=== PATIENT | male | born 1990 | race Caucasian/White ===

== ENCOUNTER → 2022-05-04 14:25 | Outpatient (BNVA) | payer SELFPAY | PROVIDERS: Visit Provider Orthopaedic Surgery | DX: M25.561 Pain in right knee (principal) | CPT/HCPCS: 73560; 73565 ==

== ENCOUNTER 2022-09-13 09:26 | Emergency (ER) | payer BC, MEDICAID, SELFPAY ==
[2022-09-13 09:35] VITALS: BP 168/118; PULSE 111; RESP 18; O2SAT 96; BMI 26.1
--- NOTE | 2022-09-13 09:46 | XR_ITS ---
WS: [id number] Left ankle, 3 views, 09/13/2022 Clinical Data: pain/swelling Comparison: None. Findings: No fractures or dislocations are seen. The ankle mortise is normal. The talus and calcaneus are unrem arkable. There is soft tissue swelling over the lateral malleolus. There is osteoarthritis of the jonny onavicular articulation. XR/XR ankle LT min 3V* [id number] Impression: 1. Soft tissue swelling over lateral malleolus. 2. 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
--- NOTE | 2022-09-13 09:46 | W.ED.EXTPRO ---
HPI - Extremity Problem General: Chief complaint: Extremity Injury, Lower Stated complaint: left ankle pain Time Seen by Provider: 09/13/22 09:26 Source: patient Mode of arrival: ambulatory (with crutches) Limitations: no limitations History of Present Illness: Patient is a 32-year-old male who presents to ED today for evaluation of left ankle pain and swelling. Patient states he initially injured the ankle back in April and states he was seen at [facility] and was told that he just rolled it . Patient states since then he has had pain and swelling in the ankle states he woke up this morning and could barely walk on it. No recent injury or trauma. He has no other complaints at this time. MD Complaint: joint swelling and joint pain Onset (ago): hour(s) Pain Consistency: constant Location: left and lower extremity (ankle) Radiation: none Relieving factors: immobilization Exacerbating factors: range of motion, weight bearing and walking Associated symptoms: Reports no associated symptoms; Deny fever(s) or rash Review of Systems Const: Denies: fever(s), chills, body aches, fatigue or malaise Musc: Reports: joint pain (L ankle) and joint swelling (L ankle); Denies: neck pain, back pain, extremity pain, extremity swelling, joint redness or joint warmth Skin/Breast: Denies: rash Neuro: Denies: headache(s), numbness in extremities, weakness in extremities or sensory changes Physical Exam Const: COMMON NORMALS: no acute distress, average body habitus, patient oriented x3, no limitations, healthy appearing, alert and well nourished Extremity: COMMON NORMALS: capillary refill normal, no clubbing, cyanosis or edema and no calf tenderness GENERAL: Yes normal exam except as noted LEFT LOWER EXTREMITY: Yes ankle joint (swelling/tenderness and mild ecchymosis to lateral L ankle) Left ankle: Yes neurovascular exam (normal) Neuro: COMMON NORMALS: patient oriented x3, moves all extremities, no focal motor deficits and no sensory deficits noted SENSORIUM/ORIENTATION: Yes alert Course Vital Signs: Vital signs: Vital Signs Temperature 98.7 F 09/13/22 09:52 Pulse Rate 102 H 09/13/22 09:52 Respiratory Rate 20 H 09/13/22 09:52 Blood Pressure 168/118 09/13/22 09:52 Pulse Oximetry 98 09/13/22 09:52 Oxygen Delivery Me thod 09/13/22 09:52 MDM - Extremity (Nontraumatic) Medical Decision Making XR negative. Patient is status post injury 4 mo ago and continues to have pain-worse today. He does have swelling around the lateral aspect of ankle. Patient states he is active with work and on his feet often and pain interferes with this. I think getting him evaluated by podiatry would be in his best interest. Referral placed with CM. He has MACKENZIE wrap, ankle brace, and crutches to use in the meantime. Discharge Plan Discharge Patient Disposition: Home Clinical Impression: Ankle pain, left Qualifiers: Chronicity: chronic Qualified Code(s): M25.572 - Pain in left ankle and joints of left foot Condition: Stable Prescriptions: No Action No Known Home Medications Discharge Orders: Discharge ED (Routine); Ordered 09/13/22 Ordered By: Mona Israel Coding Level of Care Code ED Cultural Centre Manager for Drew Segura
[2022-09-13 09:52] VITALS: BP 168/118; PULSE 102; RESP 20; TEMP 37.1; O2SAT 98
--- NOTE | 2022-09-13 10:56 | DCPLANNER ---
Addendum entered by Sheyla Modi 09/15/22 08:44: Patient had a follow up appointment with podiatry - patient did attend appointment Addendum entered by Sheyla Modi 09/14/22 08:01: Patient has a follow up appointment scheduled for Wednesday, September 14, 2022 at 2:[address] Lemus at podiatry. Clinic will call patient with appointment information. Original Note: environmental compliance manager had message to schedule a follow up appointment for patient with ortho. environmental compliance manager sent patients information to the front office staff at ortho. Patients information will be printed and reviewed. Clinic will call patient with appointment information.
[2022-09-13 11:13] VITALS: BP 148/119; PULSE 95; RESP 18; O2SAT 100
--- NOTE | 2022-09-16 13:25 | DCPLANNER ---
production team manager called patient due to no primary care physician - spoke with patients , she stated that if the patient would like help in getting established with a provider, she would have patient call mental health case manager.
== END 2022-09-13 11:23 | disposition home or self-care (01) ==
PROVIDERS: Emergency Provider Physician Assistant
DX: M25.572 Pain in left ankle and joints of left foot (principal)
CPT/HCPCS: 73610; 99283

== ENCOUNTER → 2022-09-14 14:45 | Outpatient (BNVA) | payer BC, MEDICAID, SELFPAY | PROVIDERS: Referring Provider Physician Assistant; Visit Provider Podiatrist Foot & Ankle Surgery | DX: S93.402A Sprain of unspecified ligament of left ankle, initial encounter (principal); X58.XXXA Exposure to other specified factors, initial encounter; M87.872 Other osteonecrosis, left ankle | CPT/HCPCS: 73630 ==

== ENCOUNTER 2023-02-11 09:18 | Outpatient (CLI) | payer BC, MEDICAID, SELFPAY ==
--- NOTE | 2023-02-11 09:30 | MR_ITS ---
WS: [id number] EXAMINATION: MR ankle LT wo con* [id number] ORDER DATE: 02/11/2023 9:29 AM COMPARISON: None. HISTORY: pain CONTRAST: None. TECHNIQUE: Axial proton density fat sat, axial T1, sagittal proton density, sagittal STIR, coronal T2 fat sat, and coronal T1 sequences performed. After contrast, axial T1 fat sat, coronal T1 fat sat, and sagittal T1 fat sat were performed. FINDINGS: Marked degenerative changes in the midfoot advanced for a patient this age likely due to prior trauma . Hypertrophic changes at the talonavicular joint with hypertrophic spurring dorsally. Flattening of the talus with flattening of the talocalcaneal angle. Osteochondral defect involving the talar dome l aterally with associated edema measuring 6 mm. Subchondral cystic change involving the talus with ass ociated edema. Small joint effusion. Soft tissue edema about the ankle. Distal Achilles is normal in appearance. Normal peroneal tendon sheath. Thinning with suspected prior partial tear involving the peroneal brevis with intact fibers visualized distally. Diminutive perone al brevis. Mild degenerative changes involving the cuboid and cuneiforms. Flexor compartment tendons appear intact. Extensor compartment tendons appear intact. Normal plantar aponeurosis. ATF appears in tact. IMPRESSION: * Abnormal flattening of the talus with loss of the normal talocalcaneal angle. Advanced hypertrophi c changes at the talonavicular articulation with subchondral edema and cystic changes likely due to p rior trauma. * Diminutive peroneal brevis likely due to partial chronic high-grade tear. Peroneal longus appears intact. * Small joint effusion. * Soft tissue edema about the ankle. * 6 mm osteochondral defect involving the talar dome laterally with associated edema
== END 2023-02-11 09:19 | disposition home or self-care (01) ==
PROVIDERS: PCP Nurse Practitioner; Visit Provider Podiatrist Foot & Ankle Surgery
DX: M25.572 Pain in left ankle and joints of left foot (principal); M25.579 Pain in unspecified ankle and joints of unspecified foot; S93.409A Sprain of unspecified ligament of unspecified ankle, initial encounter; X58.XXXA Exposure to other specified factors, initial encounter
CPT/HCPCS: 73721

== ENCOUNTER 2023-05-06 10:21 | Day surgery (SDC) | payer BC, MEDICAID, SELFPAY ==
[2023-05-06] VITALS (8 sets, daily range): BP systolic 129–149; BP diastolic 77–102; PULSE 70–100; RESP 17–18; TEMP 36.3–36.7; O2SAT 99–100; BMI 23.6
[2023-05-06] MEDS: sodium chloride 0.9% 1,000 ML 30 ML IV (10:55)
--- NOTE | 2023-05-06 11:24 | P.HPUD_ITS ---
Surgery/Procedure H&P Update DATE OF PROCEDURE: May 06, 2023 DATE H&P PERFORMED: 05/02/23 H&P UPDATE INFORMATION: I have reviewed H&P completed within last 30 days, I have examined patient prior to procedure, No changes to prior documentation and H&P is in [facility] EMR on date indicated PREOP DIAGNOSIS: Left talus osteochondral defect PLANNED PROCEDURE: Operation Date: 05/06/23 11:55 Proposed Procedures p Left ankle arthroscopy with excision of osteochondral defect 95394,M25.572,G89.29,M95.8(Left) - Eleno Lemus DPM
--- NOTE | 2023-05-06 11:24 | ANES.PREANE2 ---
Pre-Anesthetic Assessment Height/Weight: Height 1.7 m Weight 68.492 kg Temp Pulse Resp BP Pulse Ox O2 Del Method 98.0 F 70 17 148/93 100 Room Air 05/06/23 10:43 05/06/23 10:43 05/06/23 10:43 05/06/23 10:43 05/06/23 10:43 05/06/23 10:44 Preop Diagnosis: Left talus osteochondral defect Operation Date: 05/06/23 11:55 Proposed Procedures p Left ankle arthroscopy with excision of osteochondral defect 46902,M25.572,G89.29,M95.8(Left) - Eleno Lemus DPM Familial anesthetic complications: none Was Beta Gato taken within 24 hours: N/A Was Clonidine taken within 24 hours: N/A Last intake: Intake Last Liquid Date 05/05/23 Last Liquid Time 22:00 Last Solid Date 05/05/23 Last Solid Time 19:00 Last Intake: 22:00 Social Alcohol () and No tobacco Exam alert, oriented x 3, clear to auscultation bilaterally and regular rate & rhythm Airway Submandibular: within normal limits Cervical ROM: within normal limits Mallampati: Class I Dentition: full (decayed front upper) Pulmonary None reported CV/HEM Hypertension None reported Hepatic None reported GI None reported Metabolic None reported Musc/skel Osteoarthritis/DJD Neuropsych None reported Anesthetic Plan ASA status: 1 Anesthesia: General and Regional (specify below) (pop block) Risk of > 500 ml blood loss (7ml/kg in children): No Medications/Allergies Home Medications Medication Instructions Recorded Confirmed Last Taken Type albuterol sulfate 90 mcg/actuation 2 puff inhalation Q6H PRN 10/12/22 05/05/23 Unknown Rx aerosol inhaler (Ventolin HFA) shortness of breath or wheezing #8.5 grams lisinopril 30 mg tablet 30 mg PO DAILY #90 tabs 11/03/22 05/05/23 05/05/23 Rx meloxicam 15 mg tablet 15 mg PO DAILY #30 tabs 01/12/23 05/05/23 05/05/23 Rx Allergies Allergy/AdvReac Type Severity Reaction Status Date / Time No Known Allergies Allergy Verified 05/06/23 10:38 Current Medications Generic Name Dose Route Start Last Admin Trade Name Freq PRN Reason Stop Dose Admin Sodium Chloride 1,000 mls @ 30 mls/hr 05/06/23 10:45 05/06/23 10:55 Sodium Chloride 0.9% IV 05/07/23 10:44 30 mls/hr .Q24H BARRON Administration Data Anesthesia Cardiac Studies: No Data to Display
--- NOTE | 2023-05-06 11:24 | ANES.PREANE2 ---
Pre-Anesthetic Assessment Height/Weight: Height 1.7 m Weight 68.492 kg Temp Pulse Resp BP Pulse Ox O2 Del Method 98.0 F 70 17 148/93 100 Room Air 05/06/23 10:43 05/06/23 10:43 05/06/23 10:43 05/06/23 10:43 05/06/23 10:43 05/06/23 10:44 Preop Diagnosis: Left talus osteochondral defect Operation Date: 05/06/23 11:55 Proposed Procedures p Left ankle arthroscopy with excision of osteochondral defect 48117,M25.572,G89.29,M95.8(Left) - Eleno Lemus DPM Familial anesthetic complications: none Was Beta Gato taken within 24 hours: N/A Was Clonidine taken within 24 hours: N/A Last intake: Intake Last Liquid Date 05/05/23 Last Liquid Time 22:00 Last Solid Date 05/05/23 Last Solid Time 19:00 Social Tobacco and No alcohol Exam alert, oriented x 3, clear to auscultation bilaterally and regular rate & rhythm Airway Submandibular: within normal limits Cervical ROM: within normal limits Mallampati: Class II Dentition: chipped (multiple caries) CV/HEM Hypertension Musc/skel Osteoarthritis/DJD Anesthetic Plan ASA status: 2 Anesthesia: General and Regional (specify below) (Pop blk) Medications/Allergies Home Medications Medication Instructions Recorded Confirmed Last Taken Type albuterol sulfate 90 mcg/actuation 2 puff inhalation Q6H PRN 10/12/22 05/05/23 Unknown Rx aerosol inhaler (Ventolin HFA) shortness of breath or wheezing #8.5 grams lisinopril 30 mg tablet 30 mg PO DAILY #90 tabs 11/03/22 05/05/23 05/05/23 Rx meloxicam 15 mg tablet 15 mg PO DAILY #30 tabs 01/12/23 05/05/23 05/05/23 Rx Allergies Allergy/AdvReac Type Severity Reaction Status Date / Time No Known Allergies Allergy Verified 05/06/23 10:38 Current Medications Generic Name Dose Route Start Last Admin Trade Name Freq PRN Reason Stop Dose Admin Sodium Chloride 1,000 mls @ 30 mls/hr 05/06/23 10:45 05/06/23 10:55 Sodium Chloride 0.9% IV 05/07/23 10:44 30 mls/hr .Q24H BARRON Administration Data Anesthesia Cardiac Studies: No Data to Display
[2023-05-06] MEDS: ceFAZolin 2,000 MG in sodium chloride 0.9% (plus) 50 ML 100 MG IV (11:51)
[2023-05-06] MEDS: lidocaine-epi 2% 20 mL INJ 12 ML INJECTION (12:10)
--- NOTE | 2023-05-06 12:43 | P.OP_ITS ---
Operative Report Date of procedure: May 06, 2023 Pre-op diagnosis: Left ankle pain Osteochondral defect left talus Post-op diagnosis: Same Post-op findings: osteochondral defect left talus Procedure done: ?Left ankle arthroscopy with excision of osteochondral defect. CPT code 99696 Implants: 4-0 nylon Surgeon: Eleno Lemus DPM Bill Recapitulation Clerk: Benjamin ALVARADO Estimated blood loss: 5 24 IV fluids: 0 Urine output: 0 Findings: Osteochondral defect left lower dome Brief History: Patient has failed conservative treatment consisting of anti-inflammatories, bracing, home physical therapy MRI of the left ankle is complementary of patient's clinical and subjective findings, there is an OCD at the talar dome, less than 1 cm.? Patient would like to proceed with ankle arthroscopy with OCD repair.? I reviewed at length with the patient, the risks, potential complications, benefits, alternatives, expectations, and typical outcomes associated with the surgery. The risks and potential complications were explained in detail, including but not limited to infection, wound dehiscence or soft tissue complications, bleeding and hematoma, chronic edema, neuritis or nerve damage producing numbness or chronic pain, CRPS, failure to relieve pain or worsening pain, thick / painful / unsightly scar, limited motion / stiffness, malposition, delayed union, malunion, or nonunion, fracture, reaction to implants, anesthetic complications, venous thromboembolism, and deformity recurrence.? Risk for superficial peroneal nerve neuritis and risk for fistula formation.? I discussed the notion of no regrets with the patient as it pertains to complications and outcomes. The patient seemed to understand the nature of the proposed care and required convalescence. They asked appropriate questions, answered to their satisfaction. They are aware no guarantees can be made as to a satisfactory outcome and they understand there may be other possible unforeseen complications or outcomes not listed here that will be treated accordingly if they arise. There were no written or implied guarantees given to the patient. They gave informed consent to proceed. Procedure: After obtaining informed consent, the patient was brought to the operating room and placed in the supine position. Following the administration of general anesthetic, a well-padded tourniquet was applied to the left thigh and inflated. The left ankle and lower leg were then prepped and draped in a sterile fashion. Standard anteromedial and anterolateral portals were established for the arthroscopy. A diagnostic arthroscopy was first performed to thoroughly inspect the left ankle joint. Significant hemorrhagic synovitis was noted, particularly surrounding the lateral talar dome. The cartilage in the remainder of the joint appeared intact and healthy. The arthroscopic shaver and other debridement tools were then introduced to perform extensive debridement of the hemorrhagic synovitis. Care was taken to remove all inflamed and hypertrophic synovial tissue while preserving the healthy surrounding structures. Continuous irrigation and suction were used to maintain a clear view and remove debris. Attention was then directed to the osteochondral defect on the lateral talar dome. The defect measured approximately 6 mm. The area was carefully debrided to remove any loose or unstable cartilage fragments. The subchondral bone plate was then microfractured using a small awl. Multiple holes were made in the s ubchondral bone to stimulate bleeding and encourage the formation of a fibrocartilage clot. Throughout the procedure, fluoroscopic guidance was used to confirm the correct location and depth of the microfractures. The joint was then thoroughly irrigated to remove any loose bone or cartilage fragments. Following the completion of the procedure, the portals were closed with nylon sutures, and a sterile dressing was applied. The patient was placed in a postoperative boot for immobilization and protection of the ankle. Tourniquet was deflated and a prompt hyperemic response was appreciated to the left foot and toes. Patient tolerated the procedure and anesthesia well and was transferred to the PACU with vital signs stable and vascular status intact. Following a period of postoperative monitoring he will be discharged home without home care instructions, scheduled follow-up and my cell phone number to contact me with any postoperative questions or concerns.
--- NOTE | 2023-05-06 12:43 | P.BOP_ITS ---
Date of Procedure: 05/06/23 Surgeon: Eleno Lemus DPM Hat Forming Machine Operator(s): Benjamin ALVARADO Procedure(s) performed: Left ankle scope Findings of the procedure(s): Osteochondral defect left talus Estimated blood loss: 5 Specimen(s) removed: none Post-operative diagnosis: Osteochondral defect left talus
--- NOTE | 2023-05-06 12:48 | ANES.PROC ---
Anesthesia Procedures Procedure/Date: 05/06/23 Nerve Block ^: Nerve Block 1: Main Anesthesia: general anesthesia Time Out Performed: Yes Consent: requested by attending/covering physician, from patient, risks and benefits reviewed and patient agrees to proceed Nerve block location: popliteal (left) Anesthesia monitors applied: pulse oximetry, EKG, BP cuff and oxygen Nerve block position: supine Anesthetic Used: ropivicaine 0.5% Amount of anesthesia used (mL): 30 Ultrasound used to: recognize landmarks Nerve Stimulator Used?: No Interscalene/Femoral BLK: 4 stimuplex 21 g needle used for position and inplane approach Injection: neg aspiration of heme Patient Tolerated Procedure: well Complications: none
--- NOTE | 2023-05-06 16:39 | ANE.PACU2 ---
Inpatient post-anesthesia follow up: Airway intact: Yes Vital signs: Temperature 98.1 F Pulse Rate 88 Respiratory Rate 18 Blood Pressure 145/102 Pulse Oximetry 99 Oxygen Delivery Me thod Room Air Oxygen Flow Rate Fraction of Inspir ed Oxygen Hydration adequate: Yes Nausea and vomiting: No Pain level: 2 Mental status: Baseline
== END 2023-05-06 13:36 | disposition home or self-care (01) ==
PROVIDERS: PCP Nurse Practitioner Family; Visit Provider Podiatrist Foot & Ankle Surgery
PROC: (CPT 29891; principal; 2023-05-06 11:45)
DX: M93.272 Osteochondritis dissecans, left ankle and joints of left foot (principal); I10 Essential (primary) hypertension
CPT/HCPCS: 29891; J0690; J1100; J2405; J2704; J2795; J3010; J7030

== ENCOUNTER → 2023-07-14 11:56 | Outpatient (BNVA) | payer BC, MEDICAID, SELFPAY | PROVIDERS: PCP Nurse Practitioner Family; Visit Provider Nurse Practitioner Family | DX: M10.9 Gout, unspecified (principal); M79.643 Pain in unspecified hand; I10 Essential (primary) hypertension; Z79.899 Other long term (current) drug therapy; Z13.6 Encounter for screening for cardiovascular disorders; T63.301A Toxic effect of unspecified spider venom, accidental (unintentional), initial encounter | CPT/HCPCS: 73130; 80053; 80061; 81003; 83036; 84443; 84550; 85025; 85651; 86140 ==

== ENCOUNTER → 2023-07-19 16:25 | Outpatient (BNVA) | payer BC, MEDICAID, SELFPAY | PROVIDERS: PCP Nurse Practitioner Family; Visit Provider Nurse Practitioner Family | DX: R79.89 Other specified abnormal findings of blood chemistry (principal) | CPT/HCPCS: 80053; 81003; 82570; 84156 ==

== ENCOUNTER 2023-07-27 09:24 | Outpatient (CLI) | payer BC, MEDICAID, SELFPAY ==
--- NOTE | 2023-07-27 10:00 | US_ITS ---
WS: [id number] RENAL ULTRASOUND HISTORY: R79.89 - Other specified abnormal findings of blood chemi... COMPARISON: None available. TECHNIQUE: 2-D and color Doppler imaging of the kidney submitted. Right kidney: 9.6 cm x 3.2 cm x 4.2 cm. Cortex: 0.6 cm Normal size kidney. Moderate thinning of the mid to distal renal cortex. No mass or obstruction. Left kidney: 8.1 cm x 5.7 cm x 3.5 cm. Cortex: 1.3 cm LEFT kidney is poorly visualized. Would be difficult to exclude mass or mild hydronephrosis. Aorta: Normal. Urinary Bladder: Minimally distended. Prostate gland is very slightly prominent measuring 3.3 x 4.0 x 2.4 cm. IMPRESSION: 1. Moderate thinning mid to distal RIGHT renal cortex. No obstruction. 2. Limited visualization of the LEFT kidney. No obvious abnormality.
== END 2023-07-27 09:25 | disposition home or self-care (01) ==
LOC: RAD 09:25
PROVIDERS: PCP Nurse Practitioner Family; Visit Provider Nurse Practitioner Family
DX: R79.89 Other specified abnormal findings of blood chemistry (principal); R80.9 Proteinuria, unspecified
CPT/HCPCS: 76770

== ENCOUNTER → 2023-09-09 10:35 | Outpatient (BNVA) | payer BC, MEDICAID, SELFPAY | PROVIDERS: PCP Nurse Practitioner Family; Referring Provider Nurse Practitioner Family; Visit Provider Specialist | DX: S69.91XA Unspecified injury of right wrist, hand and finger(s), initial encounter; W22.8XXA Striking against or struck by other objects, initial encounter | CPT/HCPCS: 73130 ==